=== PATIENT | male | born 1940 | race Caucasian/White ===

== ENCOUNTER 2019-01-15 14:15 | Observation (INO) ==
[2019-01-15] MEDS ORDERED: Naloxone 0.4 MG/ML INJ IVP PRN (17:41)
[2019-01-15] MEDS ORDERED: Ondansetron 4 MG/2 ML VIAL IVP PRN (17:41)
[2019-01-15] MEDS ORDERED: *HR* Labetalol 20 MG/4 ML SYRINGE IVP PRN (17:45)
--- NOTE | 2019-01-15 17:50 | Internal Med History&Physical ---
Date of Encounter: 01/15/19 Time of Encounter: 17:10 Internal Medicine - H&P: HPI Chief complaint: Chest pain Admitted From: Emergency Dept History of present illness: Mr. Keane is a 78 year old male with history of CAD status post CABG/PCI, DM, HTN, chronic LBP on intrathecal opioids, who presented to the [facility] ED with chest pain. Started at around 8-9am this morning, left sided along the lateral rib cage, sharp, non-radiating, no obvious aggravating factors. Unsure whether SL nitro truly helped or not but by the time he got to the ED, pain eased off a bit. Denies any associated shows of breath, diaphoresis, nausea/vomiting, cough, sputum production, or fever/chills. No dyspnea on exertion, orthopnea, PND, or worsening LE swelling. Denies any GI/ symptoms. At the outside hospital ER, he was afebrile and hemodynamic is stable. Labwork was unremarkable with normal CBC and troponin. BMP did show Cr 1.37 (0.91 in 05/2015). Electrolytes within normal limits. EKG showed normal sinus rhythm with QTc of 461 msec, no ST elevations. Chest x-ray is reportedly unremarkable. He was given 324 g of aspirin, 1 dose of Toradol, 2 doses of sublingual nitroglycerin, and is transferred to [facility] for further management. Pt is currently chest pain free at the time of exam. Past Med Surg Social Fam HX - Past Medical History Attestation: Yes The following information was validated with the patient. Medical history: coronary artery disease, diabetes, hyperlipidemia, hypertension, kidney stones Additional medical history: pain pump Psychiatric history: no psych history - Past Surgical History Surgical History: coronary bypass (CABG), orthopedic, other Additional surgical history: kidney stone removal - Social History Smoking Status: Former smoker Smokeless Tobacco Status: No Alcohol use: none Drug use: none Internal Medicine - H&P: Meds Ondansetron [Zofran] 4 mg PO Q8HR PRN #10 tablet 06/16/15 [Rx] Amlodipine [Norvasc] 10 mg PO DAILY 06/17/15 [History] Aspirin Enteric Coated [Aspirin EC] 81 mg PO DAILY 06/17/15 [History] Atorvastatin [Lipitor] 40 mg PO HS 06/17/15 [History] Clopidogrel [Plavix] 75 mg PO DAILY 06/17/15 [History] Fenofibrate 135 mg PO DAILY 06/17/15 [History] Fluticasone Propionate Nasal [Flonase] 1 spray NS DAILY 06/17/15 [History] Hydrochlorothiazide [Microzide] 12.5 mg PO DAILY 06/17/15 [History] Hydrocodone/Acetaminophen [[place] 5-325 Tablet] 2 tab PO QID PRN 06/17/15 [History] LORazepam [Ativan] 1 mg PO BID 06/17/15 [History] Lisinopril [Zestril] 40 mg PO DAILY 06/17/15 [History] Metoprolol [Lopressor] 100 mg PO BID 06/17/15 [History] Omeprazole [PriLOSEC] 20 mg PO DAILY 06/17/15 [History] OxyCODONE/APAP 5/325 [Percocet 5/325] 2 each PO Q4H PRN #20 tablet 06/17/15 [Rx] Sertraline [Zoloft] 50 mg PO DAILY 06/17/15 [History] metFORMIN [Glucophage] 1,000 mg PO BID 06/17/15 [History] Allergy/AdvReac Type Severity Reaction Status Date / Time fentanyl [From Duragesic] Allergy See Verified 06/16/15 12:10 Comments morphine Allergy See Verified 06/16/15 12:10 Comments oxymorphone [From Opana] Allergy Anxiety Verified 06/16/15 12:10 Penicillins Allergy Rash Verified 06/16/15 12:10 All Systems PM: A 10-system review of systems was performed and is negative for pertinent findings except as documented above in the HPI. - Constitutional Vitals: Temp Pulse Resp BP Pulse Ox 98.0 F 68 16 145/82 95 01/15/19 17:14 01/15/19 17:14 01/15/19 17:14 01/15/19 17:14 01/15/19 17:14 Exam: General: Alert and oriented, not in acute distress. HEENT:EOMI, pupils equal, round and reactive. Cardiovascular:Normal S1 & S2, No JVD. Pulse regular. No chest wall tenderness. Lungs: clear to auscultation, no wheezes/rales Abdomen:Soft, non-tender, no rigidity. Extremities: R leg more swollen than the left but he states that it is chronic since CABG Neurological:Normal cognition and motor skills. Non-focal Skin:Normal color, no rash, no lesions. Pulses:Carotid and radial pulses normal +2. Rest of the physical exam is non contributory - Assessment and Plan (1) Chest pain Current Visit: Yes Status: Acute Assessment and plan: Atypical chest pain the patient with significant cardiac history including CABG and PCI, DM, HTN, and ex-tobacco use. States that his last LHC was > 10 years ago 1st troponin -ve, EKG NSR repeat EKG done at [facility] did show 1mm ST depression in V3-4 continue to trend troponin. Echocardiogram telemetry SL nitro PRN -> if he requires frequent SL nitro, will start nitro gtt resume home meds for CAD if troponin continues to be normal, for stress test tomorrow Qualifiers: Chest pain type: unspecified Qualified Code(s): R07.9 - Chest pain, unspecified (2) Elevated serum creatinine Current Visit: Yes Status: Acute Assessment and plan: Cr 1.37 at the OSH, last one in [facility] was 0.91 in 2014 unsure if this represents NANDA vs. CKD given his multiple risk factors for kidney disease will run IVF and monitor Cr tomorrow (3) CAD (coronary artery disease) Current Visit: Yes Status: Chronic Assessment and plan: as above Qualifiers: Coronary Disease-Associated Artery/Lesion type: [place] artery [place] vs. 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 use: without joint terminal attack controller use Diabetes mellitus complication status: with other specified complication Qualified Code(s): E11.69 - Type 2 diabetes mellitus with other specified complication (5) HTN (hypertension) Current Visit: Yes Status: Chronic Assessment and plan: resume home meds once reconciled Qualifiers: Hypertension type: essential hypertension Qualified Code(s): I10 - Essential (primary) hypertension (6) Chronic low back pain Current Visit: Yes Status: Chronic Assessment and plan: pt's family was instructed to bring his intrathecal pump Qualifiers: Back pain laterality: unspecified Sciatica presence: unspecified whether sciatica present Qualified Code(s): M54.5 - Low back pain; G89.29 - Other chronic pain (7) DVT prophylaxis Current Visit: Yes Status: Acute Assessment and plan: SQ heparin - Time Spent With Patient Total time spent is greater than 50% in coordination of care (as documented) at patient's floor/unit and/or counseling patient: Greater than 35 minutes
[2019-01-15] MEDS ORDERED: Dextrose Gel 15 GM/37.5 ML TUBE PO PRN ×2 (17:54)
[2019-01-15] MEDS ORDERED: D5% in Water 1,000 ML IVC PRN (17:54)
[2019-01-15] MEDS ORDERED: *HR* Dextrose 50 % in Water (Syg) 50 ML SYRINGE IVP PRN (17:54)
[2019-01-15] MEDS: Ringers Solution, Lactated 1,000 ML IVC SCH (18:18)
[2019-01-15] MEDS: Nitroglycerin 0.4 MG TAB.SUBL SL PRN ×2 (18:21→19:17)
[2019-01-15] MEDS: Metoprolol 100 MG TABLET PO SCH (20:57)
[2019-01-15] MEDS: Acetaminophen 325 MG TABLET PO PRN (21:01)
[2019-01-15] MEDS ORDERED: Methyl Salicylate/Menthol 28 GM TUBE TP PRN (21:26)
[2019-01-15] MEDS: Insulin LISPRO 300 UNITS/3 ML VIAL SQ SCH (22:22)
[2019-01-15] MEDS ORDERED: Perflutren Lipid Microsphere 1.3 ML in 0.9 % Sodium Chloride 8.7 ML IVP ONE (22:28)
[2019-01-15] MEDS ORDERED: Capsaicin 0.025% 60 GM TUBE TP PRN (22:55)
[2019-01-15] MEDS ORDERED: Capsaicin 0.025% 60 GM TUBE TP ONE (23:01)
[2019-01-16 01:32] LABS: Basophils # 0.1 K/mcL (0.0-0.2); Basophils % 1.4 %; Eosinophils # 0.2 K/mcL (0.0-0.6); Eosinophils % 3.3 %; Hematocrit 36.4 % (37.5-50.1); Hemoglobin 11.5 g/dL (12.9-16.9); Immature Granulocytes % 0.2 % (0-4); Lymphocytes % 38.2 %; Mean Corpuscular HGB Conc 31.6 g/dL (31.6-35.5); Mean Corpuscular Hemoglobin 28.3 pg (28.0-33.3); Mean Corpuscular Volume 89.4 fL (83.0-100.0); Mean Platelet Volume 11.4 fL (9.4-12.4); Monocytes # 0.4 K/mcL (0.0-1.3); Monocytes % 8.4 %; Neutrophils # 2.5 K/mcL (1.6-8.9); Platelet Count 214 K/mcL (140-400); Red Blood Count 4.07 M/mcL (4.19-5.50); Red Cell Distribution Width 14.9 % (11.5-14.5); Segmented Neutrophils % 48.5 %; White Blood Count 5.1 K/mcL (4.3-11.1)
[2019-01-16 01:53] LABS: Calcium 8.5 mg/dL (8.6-10.3); Potassium 3.7 mEq/L (3.5-5.1)
[2019-01-16 01:55] LABS: Chol/HDL Ratio 4.2 (0-4.9)
[2019-01-16] MEDS: Acetaminophen 325 MG TABLET PO PRN ×3 (04:33→21:15)
[2019-01-16] MEDS ORDERED: Regadenoson 0.4 MG/5 ML SYRINGE IVP ONE (06:17)
[2019-01-16 10:43] LABS: Estimated Average Glucose 146 mg/dl
[2019-01-16] MEDS: Insulin LISPRO 300 UNITS/3 ML VIAL SQ SCH ×4 (11:35→21:20)
[2019-01-16] MEDS: Metoprolol 100 MG TABLET PO SCH ×2 (11:40→21:15)
[2019-01-16] MEDS: Aspirin Enteric Coated 81 MG Tablet PO SCH (11:40)
[2019-01-16] MEDS: Lisinopril 20 MG TABLET PO SCH (11:41)
[2019-01-16] MEDS: *HR* LORazepam 1 MG TABLET PO PRN ×2 (12:22→21:15)
--- NOTE | 2019-01-16 12:48 | Electrocardiograph Report ---
[address] [place] [address] Test Date: 2019-01-15 Pat Name: Ashok Keane Department: 113 Room: 3B55 Gender: M Spa Attendant: : 1940 Requested By: Gabino Lagos Order Number: [id number] Reading MD: Valerie Ni Measurements Intervals [place] Rate: 66 P: 39 TX: 206 QRS: -5 QRSD: 102 T: 25 QT: 427 QTc: 441 Interpretive Statements SINUS RHYTHM ST DEVIATION AND MODERATE T-WAVE ABNORMALITY, CONSIDER ANTERIOR ISCHEMIA [-0.1+ mV T WAVE IN V3/V4] Electronically Signed On 01-16-2019 12:46:03 EDT by Valerie Ni
[2019-01-16] MEDS: Ringers Solution, Lactated 1,000 ML IVC SCH (15:00)
[2019-01-16] MEDS ORDERED: Methyl Salicylate/Menthol 28 GM TUBE TP PRN (15:12)
[2019-01-16] MEDS ORDERED: Methyl Salicylate/Menthol 57 APPL/57 GM TUBE TP PRN (16:00)
--- NOTE | 2019-01-16 18:03 | Internal Med Progress Note ---
Hospitalist Progress Note - Encounter Date of Encounter: 01/16/19 Time of Encounter: 18:01 - Subjective Interval History: Son concerned about pt's pain and states he was double over during the attack. He states left axilla pain is reproducible. He denies shortness of breath. He denies fever, chills, N/V, or diarrhea. - Exam Vitals: Temp Pulse Resp BP Pulse Ox 98.4 F 56 17 144/71 96 01/16/19 15:53 01/16/19 15:53 01/16/19 15:53 01/16/19 15:53 01/16/19 15:53 Exam: General: Alert and oriented, not in acute distress. HEENT: EOMI, pupils equal, round and reactive. Cardiovascular: Normal S1 & S2, No JVD. Pulse regular. No chest wall tenderness. Lungs: clear to auscultation, no wheezes/rales Abdomen: Soft, non-tender, no rigidity. Chest wall: Left chest wall pain reproducible on palpation, and no visible rash. Extremities: R leg more swollen than the left but he states that it is chronic since CABG Neurological: Normal cognition and motor skills. Non-focal Skin: Normal color, no rash, no lesions. Midline chest wall scar from CABG Pulses: Carotid and radial pulses normal +2. - Assessment and Plan (1) Chest pain Current Visit: Yes Status: Acute Assessment and Plan: Atypical chest pain the patient with significant cardiac history including CABG and PCI, DM, HTN, and ex-tobacco use. States that his last LHC was > 10 years ago. Troponin <0.03 x 2. EKG NSR. Repeat EKG done at [facility] did show 1mm ST depression in V3-4 Echocardiogram was normal. SL nitro PRN for now. Stress test Impression: Pharmacologic stress ECG is negative for ischemia at level of heart rate achieved. Gated EF = 60%. Small sized, moderate intensity, fixed apex and apical lateral perfusion defect. Wall motion is normal. These findings are suggestive of artifact. Perfusion imaging was negative for ischemia. (2) CAD (coronary artery disease) Current Visit: Yes Status: Chronic Assessment and Plan: ASA, Lipitor, and Plavix (3) Diabetes Current Visit: Yes Status: Chronic Assessment and Plan: On metformin at home, but on hold. Low dose sliding scale. HgbA1c 6.7 with AM lab (4) HTN (hypertension) Current Visit: Yes Status: Chronic Assessment and Plan: on lisinopril and metoprolol. (5) Chronic low back pain Current Visit: Yes Status: Chronic Assessment and Plan: pt's family was instructed to bring his intrathecal pump and use it. (6) Elevated serum creatinine Current Visit: Yes Status: Acute Assessment and Plan: Cr 1.37 at the OSH. Last one in [facility] was 0.91 in 2014 Unsure if this represents NANDA vs. CKD given his multiple risk factors for kidney disease Will run IVF and monitor Cr DVT Prophylaxis: SQ heparin - Summary of Assessment and Plan Summary of Assessment and Plan: History of present illness: Dr. Lagos Mr. Keane is a 78 year old male with history of CAD status post CABG/PCI, DM, HTN, chronic LBP on intrathecal opioids, who presented to the OSH ED with chest pain. Started at around 8-9am this morning, left sided along the lateral rib cage, sharp, non-radiating, no obvious aggravating factors. Unsure whether SL nitro truly helped or not but by the time he got to the ED, pain eased off a bit. Denies any associated shows of breath, diaphoresis, nausea/vomiting, cough, sputum production, or fever/chills. No dyspnea on exertion, orthopnea, PND, or worsening LE swelling. Denies any GI/ symptoms. At the outside hospital ER, he was afebrile and hemodynamic is stable. Labwork was unremarkable with normal CBC and troponin. BMP did show Cr 1.37 (0.91 in 05/2015). Electrolytes within normal limits. EKG showed normal sinus rhythm with QTc of 461 msec, no ST elevations. Chest x-ray is reportedly unremarkable. He was given 324 g of aspirin, 1 dose of Toradol, 2 doses of sublingual nitroglycerin, and is transferred to [facility] for further management. Pt is currently chest pain free at the time of exam. - Time Spent with Patient Total time spent is greater than 50% in coordination of care (as documented) at patient's floor/unit and/or counseling patient: less than 15 minutes Plan of Care Discussed with: patient Internal Medicine: Result - Labs CBC & Chem 7: 01/16/19 00:39 01/16/19 00:39 Labs: Short CBC 01/16/19 Range/Units 00:39 WBC 5.1 (4.3-11.1) K/mcL Hgb 11.5 L (12.9-16.9) g/dL Hct 36.4 L (37.5-50.1) % Plt Count 214 (140-400) K/mcL Neutrophils # 2.5 (1.6-8.9) K/mcL BMP 01/16/19 00:39 Sodium 135 L Potassium 3.7 Chloride 100 Carbon Dioxide 25 BUN 28 H Creatinine 1.40 H Glucose 142 H Calcium 8.5 L Cardiac Enzymes 01/15/19 01/16/19 Range/Units 17:55 00:39 Troponin I < 0.03 < 0.03 (< 0.04) ng/mL - Impressions Impressions Echocardiogram 01/15/19 17:44 Impressions: LVEF 60-65%. Normal LV chamber size, wall thickness and function. Mild left ventricular diastolic dysfunction. Normal right ventricular structure and function. Mild tricuspid regurgitation. Mild pulmonary hypertension. Left Ventricular Wall Motion: Rest Echo Findings All wall segments showed normal motion. Findings: Study Quality * Technically adequate exam. ECG Findings * Normal sinus rhythm. Left Ventricle * LVEF 60-65%. * Normal LV chamber size, wall thickness and function. * Mild left ventricular diastolic dysfunction. Right Ventricle * Normal right ventricular structure and function. Left Atrium * Moderately dilated left atrium. Right Atrium * Mildly dilated right atrium. Interatrial Septum * Interatrial septum not well evaluated. Aortic Valve * Trileaflet aortic valve. * Mildly calcified aortic valve leaflets. * No aortic regurgitation. * No aortic stenosis. Mitral Valve * Normal mitral valve structure and function. * No mitral regurgitation. * No mitral stenosis. Tricuspid Valve * Normal tricuspid valve structure. * Mild tricuspid regurgitation. * Mild pulmonary hypertension. Pulmonic Valve * Pulmonic valve not well visualized. * Trace pulmonic regurgitation. Aorta * Normally sized aortic root. Pericardium * The pericardium appears normal. IVC * Normal IVC dimensions and inspiratory collapse. Pulmonary Artery * Normal visualized portions of the main pulmonary artery. Consult Discharge Plan - Plan Referrals: NONE,PCP [Primary Care Provider] - (1) Chest pain Qualifiers: Chest pain type: unspecified Qualified Code(s): R07.9 - Chest pain, unspecified (2) CAD (coronary artery disease) Qualifiers: Coronary Disease-Associated Artery/Lesion type: [place] artery [place] vs. transplanted heart: [place] heart Associated angina: angina presence unspecified Qualified Code(s): I25.10 - Atherosclerotic heart disease of [place] coronary artery without angina pectoris (3) Diabetes Qualifiers: Diabetes mellitus type: type 2 Diabetes mellitus [facility] insulin use: without truck terminal manager use Diabetes mellitus complication status: with other specified complication Qualified Code(s): E11.69 - Type 2 diabetes mellitus with other specified complication (4) HTN (hypertension) Qualifiers: Hypertension type: essential hypertension Qualified Code(s): I10 - Essential (primary) hypertension (5) Chronic low back pain Qualifiers: Back pain laterality: unspecified Sciatica presence: unspecified whether sciatica present Qualified Code(s): M54.5 - Low back pain; G89.29 - Other chronic pain
[2019-01-16] MEDS ORDERED: GI Cocktail 40 ML EACH PO ONE (18:12)
[2019-01-17 02:46] LABS: Albumin 3.5 g/dL (3.5-5.7); BUN/Creatinine Ratio 17 (6-26); Blood Urea Nitrogen 22 mg/dL (8-23); Calcium 8.5 mg/dL (8.6-10.3); Carbon Dioxide 25 mEq/L (23-29); Chloride 104 mEq/L (98-107); Glucose 110 mg/dL (70-105); Osmolality,Calculated 286 (280-300); Phosphorous 3.3 mg/dL (2.7-4.5); Potassium 3.9 mEq/L (3.5-5.1); Sodium 136 mEq/L (136-145); eGFR For African Americans > 60 (> 60); eGFR For Non-African Americans 55 (> 60)
[2019-01-17] MEDS: Insulin LISPRO 300 UNITS/3 ML VIAL SQ SCH ×2 (07:55→11:44)
[2019-01-17] MEDS: Acetaminophen 325 MG TABLET PO PRN (08:05)
[2019-01-17] MEDS: Aspirin Enteric Coated 81 MG Tablet PO SCH (08:05)
[2019-01-17] MEDS: Metoprolol 100 MG TABLET PO SCH (08:06)
[2019-01-17] MEDS: Lisinopril 20 MG TABLET PO SCH (08:06)
[2019-01-17 11:40] VITALS: BP 179/81
--- NOTE | 2019-01-17 12:28 | Discharge Summary ---
- NOTES TO OUTPATIENT PROVIDER Notes to Outpatient Provider: PCP in 5 to 7 days Orders not resulted at time of discharge: Pending orders 01/15/19 19:20 NM jerry perf SPECT multi [NM] Routine 01/16/19 09:15 Urinalysis Reflex Cult & Micro [URIN] Routine 01/18/19 04:00 Renal Function Panel AM 0400 01/19/19 04:00 Renal Function Panel AM 0400 Date of Encounter: 01/17/19 Time of Encounter: 12:25 - Discharge Diagnosis (1) Chest pain Priority: Primary Status: Acute Assessment and Plan: Atypical chest pain the patient with significant cardiac history including CABG and PCI, DM, HTN, and ex-tobacco use. More likely chest wall pain due to musculoskeletal symptoms. Pt states symptoms completely resolved States that his last C was > 10 years ago. Troponin <0.03 x 2. EKG NSR. Repeat EKG done at [facility] did show 1mm ST depression in V3-4 Echocardiogram was normal and stress test negative. SL nitro PRN for now. CT chest for left axilla pain and chest wall pain was negative. Pain reproducible with palpation and relieved after being given flexeril and tylenol. Stress test Impression: Pharmacologic stress ECG is negative for ischemia at level of heart rate achieved. Gated EF = 60%. Small sized, moderate intensity, fixed apex and apical lateral perfusion defect. Wall motion is normal. These findings are suggestive of artifact. Perfusion imaging was negative for ischemia. CT chest CT/CT chest wo con IMPRESSION: No acute abnormality identified. Specifically, no abnormalities are identified to explain the patient's chest wall pain that has been ongoing for the past week. Qualifiers: Chest pain type: unspecified Qualified Code(s): R07.9 - Chest pain, unspecified (2) CAD (coronary artery disease) Priority: Primary Status: Chronic Assessment and Plan: ASA, Lipitor, and Plavix. Lipid panel wnl Qualifiers: Coronary Disease-Associated Artery/Lesion type: [place] artery [place] vs. transplanted heart: [place] heart Associated angina: angina presence unspecified Qualified Code(s): I25.10 - Atherosclerotic heart disease of [place] coronary artery without angina pectoris (3) Diabetes Priority: Secondary Status: Chronic Assessment and Plan: On metformin at home, but on hold. Low dose sliding scale. HgbA1c 6.7 with AM lab Qualifiers: Diabetes mellitus type: type 2 Diabetes mellitus [facility] insulin use: without exterminator helper termite use Diabetes mellitus complication status: with other specified complication Qualified Code(s): E11.69 - Type 2 diabetes mellitus with other specified complication (4) HTN (hypertension) Priority: Secondary Status: Chronic Assessment and Plan: on lisinopril and metoprolol. Qualifiers: Hypertension type: essential hypertension Qualified Code(s): I10 - Essential (primary) hypertension (5) Chronic low back pain Priority: Secondary Status: Chronic Assessment and Plan: pt has intrathecal pump. Qualifiers: Back pain laterality: unspecified Sciatica presence: unspecified whether sciatica present Qualified Code(s): M54.5 - Low back pain; G89.29 - Other chronic pain (6) Elevated serum creatinine Priority: Secondary Status: Acute Assessment and Plan: Cr 1.37 at the OSH. Last one in [facility] was 0.91 in 2014 Likely NANDA. CR 1.27 after getting fluids (7) Acid reflux Priority: Secondary Status: Acute Assessment and Plan: Given GI cocktail and on Omperazole Qualifiers: Qualified Code(s): K21.9 - Gastro-esophageal reflux disease without esophagitis Hospital course: History of present illness: Mr. Keane is a 78 year old male with history of CAD status post CABG/PCI, DM, HTN, chronic LBP on intrathecal opioids, who presented to the OSH ED with chest pain. Started at around 8-9am this morning, left sided along the lateral rib cage, sharp, non-radiating, no obvious aggravating factors. Unsure whether SL nitro truly helped or not but by the time he got to the ED, pain eased off a bit. Denies any associated shows of breath, diaphoresis, nausea/vomiting, cough, sputum production, or fever/chills. No dyspnea on exertion, orthopnea, PND, or worsening LE swelling. Denies any GI/ symptoms. At the outside hospital ER, he was afebrile and hemodynamic is stable. Labwork was unremarkable with normal CBC and troponin. BMP did show Cr 1.37 (0.91 in 05/2015). Electrolytes within normal limits. EKG showed normal sinus rhythm with QTc of 461 msec, no ST elevations. Chest x-ray is reportedly unremarkable. He was given 324 g of aspirin, 1 dose of Toradol, 2 doses of sublingual nitroglycerin, and is transferred to [facility] for further management. Pt is currently chest pain free at the time of exam. Discharge discussed with: patient - Time Spent with Patient Total time spent providing and/or coordinating discharge services: Time spent: Greater than 30 minutes - Discharge Medications Prescriptions: No Action Amlodipine Besylate 5 mg PO DAILY Aspirin [Adult Aspirin Regimen] 81 mg PO DAILY Atorvastatin [Lipitor] 40 mg PO HS Clopidogrel [Plavix] 75 mg PO DAILY Cyanocobalamin/Folic AC/Vit B6 [Folbic Tablet] 1 tab PO BID Fenofibrate Nanocrystallized [Fenofibrate] 145 mg PO DAILY Fluticasone Propionate Nasal [Flonase] 1 - 2 spray NS DAILY Furosemide [Lasix] 20 mg PO DAILY PRN PRN Reason: Edema Hydrochlorothiazide [Microzide] 12.5 mg PO DAILY Lisinopril [Zestril] 40 mg PO DAILY LORazepam [Ativan] 1 mg PO BID Metformin HCl 1,000 mg PO BIDWM Metoprolol Tartrate 100 mg PO BID Omeprazole [PriLOSEC] 20 mg PO DAILY Sertraline [Zoloft] 50 mg PO DAILY Home Medications: Amlodipine Besylate 5 mg PO DAILY 01/16/19 [History] Aspirin [Adult Aspirin Regimen] 81 mg PO DAILY 01/16/19 [History] Atorvastatin [Lipitor] 40 mg PO HS 01/16/19 [History] Clopidogrel [Plavix] 75 mg PO DAILY 01/16/19 [History] Cyanocobalamin/Folic AC/Vit B6 [Folbic Tablet] 1 tab PO BID 01/16/19 [History] Fenofibrate Nanocrystallized [Fenofibrate] 145 mg PO DAILY 01/16/19 [History] Fluticasone Propionate Nasal [Flonase] 1 - 2 spray NS DAILY 01/16/19 [History] Furosemide [Lasix] 20 mg PO DAILY PRN 01/16/19 [History] Hydrochlorothiazide [Microzide] 12.5 mg PO DAILY 01/16/19 [History] LORazepam [Ativan] 1 mg PO BID 01/16/19 [History] Lisinopril [Zestril] 40 mg PO DAILY 01/16/19 [History] Metformin HCl 1,000 mg PO BIDWM 01/16/19 [History] Metoprolol Tartrate 100 mg PO BID 01/16/19 [History] Omeprazole [PriLOSEC] 20 mg PO DAILY 01/16/19 [History] Sertraline [Zoloft] 50 mg PO DAILY 01/16/19 [History] Cyclobenzaprine [Flexeril] 5 mg PO BID PRN 15 Days #30 tablet 01/17/19 [Rx] Allergies/Adverse Reactions: Allergy/AdvReac Type Severity Reaction Status Date / Time fentanyl [From Duragesic] Allergy See Verified 01/16/19 11:13 Comments morphine Allergy See Verified 01/16/19 11:13 Comments oxymorphone [From Opana] Allergy Anxiety Verified 01/16/19 11:13 Penicillins Allergy Rash Verified 01/16/19 11:13 Date of admission: 01/15/19 16:51 Primary care physician: PCP NONE Consults: 01/16/19 17:53 Consult to Occupational Therapy [CONS] Routine Comment: Evaluate, develop and implement POC Reason for Consult: difficulty walking Does patient have active BEDREST order?: No Is patient medically & hemodynamically stable?: Yes Patient assessed for mobility or mobilized this visit?: Yes Consult to Physical Therapy [CONS] Routine Comment: Evaluate, develop and implement POC Reason for Consult: difficulty walking Does patient have active BEDREST order?: No Is patient medically & hemodynamically stable?: Yes Patient assessed for mobility or mobilized this visit?: Yes Discharging clinician: Franchesca Miller Anticipated date of discharge: 01/17/19 - Constitutional Vitals: Temp Pulse Resp BP Pulse Ox 98.3 F 53 18 179/81 96 01/17/19 11:40 01/17/19 11:40 01/17/19 11:40 01/17/19 11:40 01/17/19 11:40 Exam: General: Alert and oriented, not in acute distress. HEENT: EOMI, pupils equal, round and reactive. Cardiovascular: Normal S1 & S2, No JVD. Pulse regular. No chest wall tenderness. Lungs: clear to auscultation, no wheezes/rales Abdomen: Soft, non-tender, no rigidity. Chest wall: Left chest wall pain reproducible on palpation, and no visible rash. Extremities: R leg more swollen than the left but he states that it is chronic since CABG Neurological: Normal cognition and motor skills. Non-focal Skin: Normal color, no rash, no lesions. Midline chest wall scar from CABG Pulses: Carotid and radial pulses normal +2. - Patient Status Disposition: Home, Self-Care Condition: Good Overall status at discharge: patient is progressing back to baseline - Discharge Instructions Follow Up With: NONE,PCP [Primary Care Provider] - - Diet and Activity Activity: increase activity as tolerated Diet: diabetic diet, low fat, low cholesterol, low salt diet
== END 2019-01-17 13:37 | disposition home or self-care (01) ==
LOC: 3BNU
PROVIDERS: ADMIT Internal Medicine Nephrology; ATTEND Internal Medicine Nephrology